=== PATIENT | female | born 1995 | race African-American/Black ===

== ENCOUNTER 2016-12-13 13:41 | Emergency (ER) | payer OTHER ==
[~2016-12-13] VITALS: Ht 154.9 cm; Wt 70.3 kg
[2016-12-13 13:59] LABS: URINE BILIRUBIN NEGATIVE (Negative); URINE BLOOD NEGATIVE (Negative); URINE COLOR YELLOW; URINE GLUCOSE-RANDOM* NEGATIVE (Negative); URINE KETONES NEGATIVE (Negative); URINE LEUKOCYTES-REFLEX 3+ (Negative); URINE PROTEIN (DIPSTICK) NEGATIVE (Negative); URINE UROBILINOGEN 0.2 E.U./dl (0.2-1.0)
[2016-12-13 14:06] LABS: CASTS None Seen /LPF (None Seen); SQUAMOUS 0-3 Few /LPF (0-3); URINE RBC None Seen /HPF (0-2); URINE WBC-REFLEX 6-15 Few /HPF (0-5)
[2016-12-13 14:07] LABS: CRYSTALS None Seen /LPF (None Seen)
[2016-12-13] MEDS ORDERED: DIFLUCAN150 MG PO (14:48)
[2016-12-13 15:01] VITALS: BP 112/78
[2016-12-16 15:07] LABS: CHLAMYDIA TRACHOMATIS-PCR Negative (Negative); NEISSERIA GONORRHEA-PCR Negative (Negative)
== END 2016-12-13 15:02 | disposition home or self-care (01) ==
LOC: ER 13:41
PROVIDERS: Physician Assistant
DX: B37.3 Candidiasis of vulva and vagina (principal)

== ENCOUNTER 2017-05-29 12:58 | Emergency (ER) | payer OTHER ==
[~2017-05-29] VITALS: Ht 152.4 cm; Wt 72.6 kg
[~2017-05-29 12:58] MED LIST: DIFLUCAN150 MG PO
[2017-05-29] MEDS ORDERED: AMOXICILLI400 MG/5 M PO (13:57)
[2017-05-29 14:18] VITALS: BP 130/72
== END 2017-05-29 14:05 | disposition home or self-care (01) ==
LOC: ER 12:58
DX: H66.93 Otitis media, unspecified, bilateral (principal); R09.81 Nasal congestion; J02.9 Acute pharyngitis, unspecified

== ENCOUNTER 2018-11-01 20:12 | Emergency (ER) | payer OTHER ==
[~2018-11-01] VITALS: Ht 152.4 cm; Wt 77.1 kg
[~2018-11-01 20:12] MED LIST changes: +AMOXICILLI400 MG/5 M PO
[2018-11-01] MEDS ORDERED: IBUPROFEN 600600 M1 PO (22:22)
[2018-11-01] MEDS ORDERED: HYDROCODONE-AP1 EAC6 PO (22:22)
[2018-11-01 23:00] VITALS: BP 112/68
[2018-11-01] MEDS ORDERED: SENNA-DOCUSATE1 EAC1 PO (23:13)
[2018-11-01] MEDS ORDERED: PERCOCET 5-3251 EACH PO (23:13)
[2018-11-01] MEDS ORDERED: NORFLEX100 MG PO (23:13)
== END 2018-11-01 23:33 | disposition home or self-care (01) ==
LOC: ER 20:12
DX: S82.141A Displaced bicondylar fracture of right tibia, initial encounter for closed fracture (principal); T14.8XXA Other injury of unspecified body region, initial encounter; V89.0XXA Person injured in unspecified motor-vehicle accident, nontraffic, initial encounter; Y93.89 Activity, other specified; Y92.410 Unspecified street and highway as the place of occurrence of the external cause; Y99.8 Other external cause status

== ENCOUNTER 2018-11-06 05:32 | Day surgery (SDC) | payer OTHER ==
[~2018-11-06] VITALS: Ht 152.4 cm; Wt 76.2 kg
[~2018-11-06 05:32] MED LIST changes: +HYDROCODONE-AP1 EAC6 PO; +IBUPROFEN 600600 M1 PO; +NORFLEX100 MG PO; +PERCOCET 5-3251 EACH PO; +SENNA-DOCUSATE1 EAC1 PO
[2018-11-06 07:30] VITALS: BP 116/79
[2018-11-06 09:26] VITALS: BP 116/79
[2018-11-06 09:32] VITALS: BP 116/79
[2018-11-06 10:13] VITALS: BP 116/79
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
== END 2018-11-06 10:45 | disposition home or self-care (01) ==
LOC: OR 05:32 → TBA 05:32 → OR 10:45
DX: S82.121A Displaced fracture of lateral condyle of right tibia, initial encounter for closed fracture (principal); V89.2XXA Person injured in unspecified motor-vehicle accident, traffic, initial encounter; Y93.89 Activity, other specified; Y92.89 Other specified places as the place of occurrence of the external cause; Y99.8 Other external cause status
CPT/HCPCS: 50010; 50101; 50341; 50342; 50386; 51412; 55430; 56525; 57091; 57180; 62110; 62900; 70005

== ENCOUNTER 2021-03-25 16:06 | Emergency (ER) | payer OTHER ==
[~2021-03-25] VITALS: Ht 152.4 cm; Wt 90.7 kg
[2021-03-25 16:16] VITALS: BP 111/73
[2021-03-25 16:30] LABS: URINE BILIRUBIN NEGATIVE (Negative); URINE BLOOD NEGATIVE (Negative); URINE CLARITY CLEAR; URINE COLOR YELLOW; URINE GLUCOSE-RANDOM* NEGATIVE (Negative); URINE KETONES TRACE (Negative); URINE LEUKOCYTES-REFLEX NEGATIVE (Negative); URINE NITRITE-REFLEX NEGATIVE (Negative); URINE PROTEIN (DIPSTICK) NEGATIVE (Negative); URINE SPECIFIC GRAVITY >= 1.030 (1.005-1.035); URINE UROBILINOGEN 0.2 E.U./dl (0.2-1.0)
== END 2021-03-25 20:24 | disposition home or self-care (01) ==
LOC: ER 16:06
PROVIDERS: Emergency Medicine
DX: N72 Inflammatory disease of cervix uteri (principal); Z79.899 Other long term (current) drug therapy